=== PATIENT | male | born 1965 | race Caucasian/White ===

== ENCOUNTER 2017-07-13 22:52 | Emergency (ER) | payer SELFPAY | END 2017-07-13 23:24 | disposition left against medical advice (07) | LOC: FTE 22:52 | DX: Z53.21 Procedure and treatment not carried out due to patient leaving prior to being seen by health care provider (principal) ==

== ENCOUNTER 2017-10-30 17:48 | Emergency (ER) | payer MEDICAID | END 2017-10-30 20:00 | disposition home or self-care (01) | LOC: FTE 17:48 | DX: H11.32 Conjunctival hemorrhage, left eye (principal) | CPT/HCPCS: 99282; Z7502 ==

== ENCOUNTER 2018-02-22 18:43 | Emergency (ER) | payer MEDICAID ==
[2018-02-23 00:01] LABS: ADD MAN DIFF? NO
[2018-02-23 00:04] LABS: WHITE BLOOD COUNT 7.5 10^3/ul (4.8-10.8)
[2018-02-23 00:04] LABS: BASOPHILS % 0.4 % (0.0-2.0); EOSINOPHILS # 0.2 10^3/ul (0.0-0.5); EOSINOPHILS % 2.1 % (0.0-7.0); HEMATOCRIT 41.8 % (42.0-52.0); HEMOGLOBIN 13.8 g/dl (14.0-18.0); LYMPHOCYTES # 2.7 10^3/ul (0.8-2.9); LYMPHOCYTES % 36.1 % (15.0-51.0); MEAN CORPUSCULAR HEMOGLOBIN 26.3 pg (29.0-33.0); MEAN CORPUSCULAR VOLUME 79.6 fl (82.0-101.0); MONOCYTE # 0.7 10^3/ul (0.3-0.9); MONOCYTES % 9.5 % (0.0-11.0); NEUTROPHIL # 3.8 10^3/ul (1.6-7.5); NEUTROPHILS % 51.4 % (39.0-77.0); PLATELET COUNT 209 10^3/UL (140-415); RED BLOOD COUNT 5.25 10^6/ul (4.70-6.10); RED CELL DISTRIBUTION WIDTH 13.1 % (11.5-14.5)
[2018-02-23 00:29] LABS: ANION GAP 11 (5-13); BLOOD UREA NITROGEN 12 mg/dl (7-20); CALCIUM 9.2 mg/dl (8.4-10.2); CARBON DIOXIDE 30 mmol/L (21-31); CHLORIDE 100 mmol/L (97-110); CREATININE 0.76 mg/dl (0.61-1.24); Estimated GFR > 60 mL/min (>60); GLUCOSE 182 mg/dl (70-220); SODIUM 141 mmol/L (135-144)
[2018-02-23 00:34] LABS: INR 0.99; PROTIME 13.2 Sec (11.9-14.9)
[2018-02-23 00:41] LABS: B-TYPE NATRIURETIC PEPTIDE 23 PG/ML (0-125); TROPONIN-I < 0.012 ng/ml (0.000-0.120)
== END 2018-02-23 01:56 | disposition home or self-care (01) ==
LOC: E/R 02-23 01:56
DX: I10 Essential (primary) hypertension (principal); R53.83 Other fatigue; R07.9 Chest pain, unspecified; F41.9 Anxiety disorder, unspecified; D50.9 Iron deficiency anemia, unspecified
CPT/HCPCS: 36415; 71045; 80048; 83880; 84484; 85025; 85610; 93005; 99285-25

== ENCOUNTER 2018-07-11 11:26 | Emergency (ER) | payer MEDICAID ==
[2018-07-11 12:50] LABS: ADD MAN DIFF? NO
[2018-07-11 12:53] LABS: WHITE BLOOD COUNT 6.9 10^3/ul (4.8-10.8)
[2018-07-11 12:53] LABS: BASOPHIL # 0.1 10^3/ul (0.0-0.1); BASOPHILS % 0.7 % (0.0-2.0); EOSINOPHILS # 0.2 10^3/ul (0.0-0.5); EOSINOPHILS % 2.2 % (0.0-7.0); HEMATOCRIT 43.7 % (42.0-52.0); HEMOGLOBIN 14.3 g/dl (14.0-18.0); LYMPHOCYTES # 2.1 10^3/ul (0.8-2.9); LYMPHOCYTES % 30.2 % (15.0-51.0); MEAN CORPUSCULAR HGB CONC 32.7 g/dl (32.0-37.0); MEAN CORPUSCULAR VOLUME 79.6 fl (82.0-101.0); MEAN PLATELET VOLUME 10.5 fl (7.4-10.4); MONOCYTE # 0.6 10^3/ul (0.3-0.9); MONOCYTES % 9.2 % (0.0-11.0); NEUTROPHILS % 57.3 % (39.0-77.0); PLATELET COUNT 236 10^3/UL (140-415); RED BLOOD COUNT 5.49 10^6/ul (4.70-6.10); RED CELL DISTRIBUTION WIDTH 12.7 % (11.5-14.5)
[2018-07-11 13:10] LABS: ANION GAP 9 (5-13); BLOOD UREA NITROGEN 13 mg/dl (7-20); CALCIUM 9.1 mg/dl (8.4-10.2); CARBON DIOXIDE 28 mmol/L (21-31); CHLORIDE 104 mmol/L (97-110); CREATININE 0.76 mg/dl (0.61-1.24); Estimated GFR > 60 mL/min (>60); GLUCOSE 155 mg/dl (70-220); POTASSIUM 4.1 mmol/L (3.5-5.1); SODIUM 141 mmol/L (135-144)
== END 2018-07-11 14:19 | disposition home or self-care (01) ==
LOC: FTE 11:26
DX: I10 Essential (primary) hypertension (principal); R11.0 Nausea
CPT/HCPCS: 70450; 80048; 85025; 93005; 99285-25

== ENCOUNTER 2018-08-12 18:29 | Emergency (ER) | payer MEDICAID | END 2018-08-12 20:00 | disposition home or self-care (01) | LOC: FTE 18:29 | DX: I10 Essential (primary) hypertension (principal) | CPT/HCPCS: 99281; Z7502 ==

== ENCOUNTER 2018-11-05 16:32 | Emergency (ER) | payer MEDICAID | END 2018-11-05 17:57 | disposition home or self-care (01) | LOC: FTE 16:32 | DX: Z76.0 Encounter for issue of repeat prescription (principal); I10 Essential (primary) hypertension | CPT/HCPCS: 99281; Z7502 ==